=== PATIENT | female | born 1990 | race Caucasian/White ===

== ENCOUNTER 2016-09-15 17:30 | Emergency (ER) | payer MEDICAID, MEDICARE ==
--- NOTE | 2016-09-15 18:15 | Emergency Department Record ---
History of Present Illness - General Chief complaint: ENT Stated complaint: SINUS INFEC (POSS) Time Seen by Provider: 09/15/16 18:03 Source: Patient, Family Mode of Arrival: Ambulatory - History of Present Illness Initial comments: The patient and her mother states she has had thick green copious nasal discharge for over a week. She denies maki, f,c,st, rashes, stiff neck. She has a history of sinus infections in the past. Also, a week ago she fell and cut her head at her hairline over her forehead. He mother wants the wound checked. MD complaint: Other (sinus drainage) Onset/Timin -: Week(s) Improves with: None Worsens with: None Associated Symptoms: Rhinorrhea - Related Data Home Medications Medication Instructions Recorded Confirmed Last Taken Fexofenadine HCl [Allergy Relief] 180 mg PO DAILY 09/12/14 09/15/16 09/15/16 Levothyroxine Sodium [Synthroid] 0.1 mg PO DAILY 09/12/14 09/12/14 09/15/16 Norethindrone-Ethinyl Estrad 1 each PO DAILY 09/12/14 09/15/16 09/15/16 [Dasetta 1-35-28 Tablet] Propranolol HCl [Propranolol HCl 80 mg PO BID 09/12/14 09/15/16 09/15/16 ER] Propranolol HCl [Propranolol HCl 120 mg PO BID 09/12/14 09/15/16 09/15/16 ER] Fluticasone Propionate [Flonase] 1 spray INH ASDIR 09/15/16 09/15/16 09/15/16 Omeprazole [Prilosec] 20 mg PO DAILY 09/15/16 09/15/16 09/15/16 Previous Rx's Medication Instructions Recorded Azithromycin [Zithromax] 250 mg PO DAILY #12 tab 09/15/16 Allergies Allergy/AdvReac Type Severity Reaction Status Date / Time Penicillins Allergy HIVES Verified 09/15/16 17:54 Travel Screening - Travel/Exposure Within Last 30 Days Have you traveled within the last 30 days?: No - Travel/Exposure Within Last Year Have you traveled outside the [place] in the last year?: No - Additonal Travel Details Have you been exposed to anyone with a communicable illness?: No - Travel Symptoms Symptom Screening: None Review of Systems Reviewed: No additional complaints except as noted below Constitutional: Reports: As per HPI. Denies: Chills, Fever, Malaise, Night sweats, Weakness, Weight change Eyes: Reports: As per HPI. Denies: Eye discharge, Eye pain, Photophobia, Vision change ENT: Reports: As per HPI. Denies: Congestion, Dental pain, Ear pain, Epistaxis , Hearing loss, Throat pain Respiratory: Reports: As per HPI. Denies: Cough, Dyspnea, Hemoptysis, Stridor, Wheezes Cardiovascular: Reports: As per HPI. Denies: Arrhythmia, Chest pain, Dyspnea on exertion, Edema, Murmurs, Orthopnea, Palpitations, Paroxysmal nocturnal dyspnea, Rheumatic Fever, Syncope Endocrine: Reports: As per HPI. Denies: Fatigue, Heat or cold intolerance, Polydipsia, Polyuria Gastrointestinal: Reports: As per HPI. Denies: Abdominal pain, Constipation, Diarrhea, Hematemesis, Hematochezia, Melena, Nausea, Vomiting Genitourinary: Reports: As per HPI. Denies: Abnormal menses, Discharge, Dyspareunia, Dysuria, Frequency, Hematuria, Incontinence, Retention, Urgency Musculoskeletal: Reports: As per HPI. Denies: Arthralgia, Back pain, Gout, Joint swelling, Myalgia, Neck pain Skin: Reports: As per HPI. Denies: Bruising, Change in color, Change in hair/ nails, Lesions, Pruritus, Rash Neurological: Reports: As per HPI. Denies: Abnormal gait, Confusion, Headache, Numbness, Paresthesias, Seizure, Tingling, Tremors, Vertigo, Weakness Psychiatric: Reports: As per HPI. Denies: Anxiety, Auditory hallucinations, Depression, Homicidal thoughts, Suicidal thoughts, Visual hallucinations Hematological/Lymphatic: Reports: As per HPI. Denies: Anemia, Blood Clots, Easy bleeding, Easy bruising, Swollen glands Past Medical History - SOCIAL HISTORY Smoking Status: Never smoker Alcohol Use: None Drug Use: None - RESPIRATORY Hx Respiratory Disorders: Yes Comment:: allergies - CARDIOVASCULAR Hx Cardio Disorders: No - NEURO Hx Neuro Disorders: No - GI Hx GI Disorders: Yes Hx Reflux: Yes - Hx Genitourinary Disorders: No - ENDOCRINE Hx Endocrine Disorders: Yes Hx Thyroid Disease: Yes - MUSCULOSKELETAL Hx Musculoskeletal Disorders: No - PSYCH Hx Psych Problems: No - HEMATOLOGY/ONCOLOGY Hx Hematology/Oncology Disorders: No Family Medical History Any Significant Family History?: No Physical Exam - General General Appearance: Alert, Oriented x3, Cooperative, No acute distress (voice sounds congested.) - Head Head exam: Normal inspection Image of Face/Head: 1 - well healed laceration, no evidence of infection, some scab formed - Eye Eye exam: Normal appearance, PERRL Pupils: Normal accommodation - ENT ENT exam: Normal exam, Mucous membranes moist, Normal external ear exam, Normal orophraynx, TM's normal bilaterally Ear exam: Normal external inspection. negative: External canal tenderness Nasal Exam: Normal inspection, Discharge (thick green drainage). negative: Sinus tenderness Mouth exam: Normal external inspection, Tongue normal Teeth exam: Normal inspection. negative: Dental caries Throat exam: Normal inspection. negative: Tonsillar erythema, Tonsillar exudate - Neck Neck exam: Normal inspection, Full ROM. negative: Lymphadenopathy, Meningismus , Tenderness - Respiratory Respiratory exam: Normal lung sounds bilaterally. negative: Respiratory distress - Cardiovascular Cardiovascular Exam: Regular rate, Normal rhythm, Normal heart sounds - GI/Abdominal GI/Abdominal exam: Soft, Normal bowel sounds. negative: Tenderness - Rectal Rectal exam: Deferred - exam: Deferred - Extremities Extremities exam: Normal inspection, Full ROM, Normal capillary refill. negative: Tenderness - Back Back exam: Reports: Normal inspection, Full ROM. Denies: Muscle spasm, Rash noted, Tenderness - Neurological Neurological exam: Alert, Normal gait, Oriented X3, Reflexes normal - Psychiatric Psychiatric exam: Normal affect, Normal mood - Skin Skin exam: Dry, Intact, Normal color, Warm Course Vital Signs 09/15/16 17:59 Temperature 98.6 F Pulse Rate 96 H Respiratory 18 Rate Blood Pressure 136/86 Pulse Ox 97 Medical Decision Making - Management Options MDM Management: No Additional Work-up Planned Disposition Disposition: Discharge Clinical Impression: Laceration Sinusitis Qualifiers: Sinusitis location: unspecified location Chronicity: acute Recurrence: recurrent Qualified Code(s): J01.91 - Acute recurrent sinusitis, unspecified Disposition: Home, Self-Care Condition: (1) Good Instructions: Sinusitis (ED), Laceration (ED) Additional Instructions: Take antibiotics with the refill until gone. Keep wound clean and dry. Follow up with PCP as needed. Prescriptions: Azithromycin [Zithromax] 250 mg PO DAILY #12 tab Forms: Patient Portal Access
== END 2016-09-15 18:30 | disposition home or self-care (01) ==
LOC: ER 17:30
DX: S01.81XD Laceration without foreign body of other part of head, subsequent encounter (principal); J01.91 Acute recurrent sinusitis, unspecified; W19.XXXD Unspecified fall, subsequent encounter
CPT/HCPCS: 99283